=== PATIENT | male | born 1960 | race Caucasian/White ===

== ENCOUNTER 2024-05-05 06:55 | Day surgery (SDC) | payer MEDICARE, OTHER, SELFPAY ==
[2024-04-25 12:33] VITALS: BMI 26.3
[2024-05-05] VITALS (12 sets, daily range): BP systolic 99–144; BP diastolic 63–89; PULSE 71–99; RESP 12–91; TEMP 35.8–36.9; O2SAT 96–100; BMI 26.3
--- NOTE | 2024-05-05 06:00 | DI.RAD.S_ITS ---
PROCEDURE: XR KNEE LT 1TO2V INDICATIONS: TKA TECHNIQUE: 2 view(s) of the knee acquired. COMPARISON: None. FINDINGS: Bones: Patient is status post knee joint arthroplasty. Hardware components are in expected positions. Visualized bony structures are intact. Soft tissues: Overlying postoperative changes are noted. IMPRESSION: Expected post-operative appearance of a knee arthroplasty. Dictated by: Tariq Marlow M.D. on 05/05/2024 at 12:58 Approved by: Tariq Marlow M.D. on 05/05/2024 at 12:58
--- NOTE | 2024-05-05 07:45 | PM.PREOP ---
Pre-operative Note Interval Note History & Physical reviewed/Exam performed by Physician: Yes Changes to H&P: No
[2024-05-05] MEDS: LACTATED RINGERS 1,000 ML 42 ML IV (07:54)
[2024-05-05] MEDS: ACETAMINOPHEN 325 MG TABLET 975 MG PO (07:54)
[2024-05-05] MEDS: CELECOXIB 200 MG CAPSULE 400 MG PO (07:55)
[2024-05-05] MEDS: VANCOMYCIN 1,000 MG/200 ML PIGGYBACK 200 MG IV (08:09)
--- NOTE | 2024-05-05 08:33 | PM.OP.1 ---
Operative Date/Time/Diagnoses Date of procedure: 05/05/24 Time of procedure: 09:20 Pre-op diagnosis: Severe left knee OA Post-op diagnosis: same Procedure & Clinicians Procedure: Left total knee arthroplasty Same procedure as scheduled: Yes Indications: The patient has had progressively worsening left knee pain with radiographic changes consistent with arthritis. Non-operative management has failed and the patient has requested total knee replacement. The risks, benefits and alternatives to surgery were discussed with the patient prior to proceeding. Risks discussed included, but were not limited to, failure to relieve pain, stiffness, infection, nerve damage, deep venous thrombosis, pulmonary embolism, stroke, coma, heart attack, permanent paralysis and , as well as the potential need for eventual revision of the prosthetic. Surgeon: Madelaine See Supervisor Final: Alfa Poole Anesthesia Type: General, Spinal and Peripheral nerve block Operative Notes Findings: Severe left knee OA, adequate bone, adequate stability Closure Type: primary Specimen(s): none sent Prosthetic devices, grafts, tissues, transplants, or devices: See and nephew [facility] BCS 2 size 8 femur, size 7 tibia, +9 poly, 38 mm oval patella Estimated Blood Loss (mL): 250 Blood products transfused: none Procedure in detail: The patient was seen in the pre-operative area, where the patient identified the left knee as the operative site and this was marked with my initials. The patient received pre-operative antibiotics, and was taken to the operating room and placed on the operative table in the supine position. After satisfactory anesthesia, a scrap shear operator out was performed. The left leg was encircled with a tourniquet about the proximal thigh, and the leg was prepared from the toes to the tourniquet with ChloroPrep in the usual fashion and draped through sterile drapes. The leg was elevated and exsanguinated with Eschmark bandage and the tourniquet inflated to [250] mmHg pressure. A PA was used during the procedure was essential for intraoperative retraction and safe implantation of the components. The knee was approached through an approximately 18 cm incision centered over the patella and carried into the knee through a medial parapatellar arthrotomy. Portion of the medial and lateral meniscus was resected. Soft tissue was carefully mobilized around the patella the patella was measured with a caliper. Bone was resected from the patella and the patellar height was reconstituted with up an appropriate sized patellar component. A cover was then placed on the patella. A small amount of additional medial and lateral meniscus was resected. Onofre planes were placed for navigation and the adjustable navigated guide was pinned to the tibia. A plan was taken and the patient was placed through range of motion the knee was carefully navigated to optimize range of motion and stability. Cori robotic bur was used for the distal femoral resection. It looked like an appropriate distal femoral cut and the cut was made without difficulty. The rotation was assessed and the appropriate size femoral guide was placed on the distal femur and finishing cuts were made. There was no evidence of notching. The anterior, posterior and chamfer cuts were then made. The posterior osteophytes and soft tissues were then removed. The posterior capsule was injected with part of a mixture of 60 ml 0.25% Marcaine mixed with 20 ml Exparel for post operative pain control. The remainder of this mixture was injected into the capsule and subcutaneous tissues during cement curing. The tibia guide was carefully navigated. The proximal tibial cut was made without difficulty. The patient was placed in extension residual medial and lateral meniscus as well as any residual bone was carefully resected. [No] additional tibia was resected. Hemostasis was achieved especially posteriorly. Additional local was injected into the posterior capsule. The extension gap was assessed. The femoral component was trial was placed and the notch was finished. Trial tibial and femoral components were then placed and the knee placed through a range of motion. Range of motion was [0-130], with good stability throughout the range. The trials were then removed, and the tibia was finished. The bone was prepared with pulsatile lavage, and dried with a sponge. Cement was applied and the final prosthetics placed. Excess cement was removed during and after cement curing. A brief Betadine soak was performed. After confirming there was no extruded cement posteriorly, the final tibial insert was placed. The knee was copiously irrigated and the tourniquet deflated. Hemostasis was obtained with the Bovie cautery. The capsule was closed with interrupted # 1 Vicryl suture. The subcutaneous layer was closed with barbed sutures, and the skin with a running 3-0 V-Lock suture and Surgical glue. An Aquacel Ag dressing was applied and the patient was taken to recovery having tolerated the procedure well. Complications: none Post-operative Condition: stable Disposition: Acute Care Plan for aftercare: The patient will be maintained on a standard total knee replacement protocol with weight bearing as tolerated. The patient will receive aspirin and sequential compression devices for DVT prophylaxis. The patient will be discharged home when safe for the home environment.
[2024-05-05] MEDS: CEFAZOLIN 2 GM/100 ML PREMIX 100 ML IV (09:35)
[2024-05-05] MEDS: TRANEXAMIC ACID 1,000 MG VIAL 1000 MG INH ×2 (09:35→11:33)
--- NOTE | 2024-05-05 09:42 | SUR.OPER ---
Supine on padded OR bed. Pillow under head, left arm secured on padded armboard <90 degree abduction, right arm on gel pad across chest, blanket, secured w tape. Safety belt across torso. Non-operative leg secured with tape over blanket over lower leg. Operative leg secured in DeMayo/Ray/Nathe positioner. Foam padded brace at thigh of operative leg.
[2024-05-05] MEDS: BUPIVACAINE LIPOSOME 266 MG/20 ML VIAL INJ (10:34)
[2024-05-05] MEDS: BUPIVACAINE 0.25% (PF) 60 ML, EPINEPHrine 0.3 MG INJ (10:34)
[2024-05-05] MEDS: IBUPROFEN 400 MG TABLET PO (13:25)
[2024-05-05] MEDS: OXYCODONE IR 5 MG TABLET PO (13:26)
[2024-05-05] MEDS: LACTATED RINGERS 1,000 ML 100 ML IV (13:33)
--- NOTE | 2024-05-05 13:52 | PC.NURSE ---
Pt arrived on unit at 1245. Oriented to room, bed controls, and call light controls. Patient c/o intolerable pain to left knee and asked for SCD and chrissie wrap removal. Pt asked to sit at bedside and wanted to stand. Pt became intolerable to sitting up, and was diaphoretic and c/o lightheadedness. Pt assisted back to lying down in bed. BP was checked. Color returned to pink, and pain medication provided.
[2024-05-05] MEDS: ACETAMINOPHEN 325 MG TABLET 650 MG PO (14:10)
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
--- NOTE | 2024-05-05 17:05 | PC.NURSE ---
Pt asked if he could be d/c'd home today. Dr. See arrived at Pt's bedside and spoke with the Pt, assessed the Pt, and placed d/c orders. IV removed. D/c instructrions reviewed with Pt. Discussed importance of no driving while taking narcotics, and to increase fluid intake to reduce risk of constipation. Pt dressed and confirmed he had all his belongings. Pt exited via w/c with DIRECTORY ASSISTANCE OPERATOR to private vehicle.
== END 2024-05-05 16:55 | disposition home or self-care (01) ==
LOC: OR 06:57 → AC 11:34
PROVIDERS: PCP Internal Medicine; Referring Provider Orthopaedic Surgery; Visit Provider Orthopaedic Surgery
PROC: 0SRD0JZ Replacement of Left Knee Joint with Synthetic Substitute, Open Approach (ICD-10-PCS; CPT 27447; principal; 2024-05-05 09:00)
DX: M17.12 Unilateral primary osteoarthritis, left knee (principal); M25.762 Osteophyte, left knee
CPT/HCPCS: 27447; 73560; 82962; 97161; C1776; C9290; J0171; J0690; J2250; J2405; J2704; J3010